=== PATIENT | male | born 1995 | race Caucasian/White ===

== ENCOUNTER 2023-09-28 11:17 | Emergency (ER) | payer OTHER, SELFPAY ==
[2023-09-28 11:20] VITALS: BP 105/78
--- NOTE | 2023-09-28 12:19 | ED.GENMED ---
History of Present Illness
General
Chief Complaint: Back Pain
Time Seen by Provider: 09/28/23 12:05
Travel History
Have you had any contact with someone who has COVID-19?: No
Do you have any symptoms of coronavirus? Fever > 100 degrees, chills, cough, shortness of breath, sore throat, loss of taste or smell, muscle aches, or headache?: No
History of Present Illness
History of Present Illness:
27-year-old otherwise healthy male presents to the emergency department for evaluation of persistent right gluteal pain radiating to the right lateral knee ongoing for the past 3 to 4 weeks. Denies any acute known injury. Has been taking NSAIDs
and muscle relaxants without substantial relief. Denies any saddle anesthesias, lower extremity numbness, loss of bladder function, or fevers.
Review of Systems
Review of Systems
Allergies reviewed?: Yes
All Other Systems: ROS reviewed and negative except as documented in HPI and ROS
Phy Exam
Physical Exam
Physical Exam:
GEN: Well appearing, NAD, WDWN
HEENT: Oral mucosa moist, no scleral icterus
Cardiac: Regular rate
Lung: No respiratory distress, no tachypnea
MSK: No gross deformity or injuries. Moderate tenderness elicited to the right superior gluteal region. Right hip range of motion normal in all uriostegui with no elicited pain. Straight leg raise is positive at 15 degrees on the right, negative on
the left. Patellar reflexes 2+ bilaterally, there is 4 out of 5 EHL strength on the right otherwise bilateral lower extremity strength is 5/5 in all uriostegui
Skin: Good color, no pallor or jaundice, no rashes
Neuro: AO x3, moves all extremities freely
Psych: Calm, cooperative
Course
Vital Signs
Initial and Last Documented VS:
Initial Vital Signs
Temp Pulse Resp BP Pulse Ox
98.8 F 83 17 105/78 98
09/28/23 11:20 09/28/23 11:20 09/28/23 11:20 09/28/23 11:20 09/28/23 11:20
Last Documented Vital Signs
Temp Pulse Resp BP Pulse Ox
98.8 F 83 17 105/78 98
09/28/23 11:20 09/28/23 11:20 09/28/23 11:20 09/28/23 11:20 09/28/23 11:20
MDM/Problems Addressed
MDM/Problems Addressed:
Patient's symptoms consistent with lumbar radiculopathy. Certainly concerning that he is developing mild motor deficit due to the persistence of symptoms. Will trial a course of corticosteroids, recommend outpatient primary care and physical
therapy. He has no symptoms concerning for cauda equina. No traumatic injury warranting plain films
*Critical Care Note
Total Time (30-74mins, 75-104mins- exclusive of procedures): Not Applicable
ED Attending Note
-
Portions of this chart may have been created with voice recognition software.� Occasional wrong word or��sound alike� substitutions may have occurred due to the inherent limitations of voice recognition software.
Discharge Plan
Departure
Patient Disposition: Home (Routine Discharge)
Date of Disposition: 09/28/23
Time of Disposition: 12:23
Patient with high blood pressure during this ER visit?: No
Discharge Problem:
Lumbar radiculopathy, right
Instructions: Radiculopathy (DC)
Prescriptions:
New
prednisone 10 mg tablet
10 mg PO DIRECTED Qty: 43 0RF
Rx Instructions:
Once daily as follows: 60, 60, 50, 50, 40, 40, 30, 30, 20, 20, 10, 10, 5, 5
methocarbamol 750 mg tablet
750 - 1,500 mg PO Q8H PRN (Reason: pain) Qty: 30 0RF
Activity Restrictions/Additional Instructions:
Follow up with below for primary care
[facility]
[address]
[place] [id number]
[phone]
Interventions
Interventions:
*Risk Screen - Suicide Last Done: 09/28/23 12:32
*General Assessment Last Done: 09/28/23 12:49
*Neglect/Abuse Screening Last Done: 09/28/23 12:32
ED- Fall Risk Assessment Last Done: 09/28/23 12:49
*ED COVID-19 Vaccine History Last Done: 09/28/23 12:49
*Nursing Disposition Last Done: 09/28/23 12:49
ED-Musculoskeletal Assessment Last Done: 09/28/23 12:32
Discharge Date and Time
Print Language: ARGENTINE
== END 2023-09-28 12:49 | disposition home or self-care (01) ==
LOC: EMR 11:17
PROVIDERS: EMERGENCY PHYSICIAN Emergency Medicine
DX: M54.16 Radiculopathy, lumbar region (principal)
CPT/HCPCS: 99283